=== PATIENT | male | born 2000 | race Caucasian/White ===

== ENCOUNTER 2021-05-02 18:52 | Emergency (ER) | payer OTHER ==
[~2021-05-02] VITALS: Ht 170.2 cm; Wt 117.0 kg
[2021-05-02 19:03] VITALS: BP 157/77
[2021-05-02] MEDS ORDERED: HYDROcodone/APAP 5/325 MG 1 TAB TAB PO ONE (19:35)
[2021-05-02] MEDS ORDERED: IBUP-2213 PO (19:44)
== END 2021-05-02 19:50 | disposition home or self-care (01) ==
LOC: MED 18:52
DX: S62.336A Displaced fracture of neck of fifth metacarpal bone, right hand, initial encounter for closed fracture (principal); Z79.899 Other long term (current) drug therapy; X58.XXXA Exposure to other specified factors, initial encounter; Y93.89 Activity, other specified; Y92.89 Other specified places as the place of occurrence of the external cause; Y99.8 Other external cause status
CPT/HCPCS: 73130; 99283

== ENCOUNTER 2023-11-25 04:33 | Emergency (ER) | payer OTHER ==
[~2023-11-25] VITALS: Ht 167.6 cm; Wt 104.3 kg
[~2023-11-25 04:33] MED LIST: IBUP-2213 PO
[2023-11-25 05:00] VITALS: BP 150/102; PULSE 81; RESP 18; TEMP 98; O2SAT 99
[2023-11-25 05:31] VITALS: BP 150/102; PULSE 81; RESP 18; TEMP 98; O2SAT 99
== END 2023-11-25 05:31 | disposition home or self-care (01) ==
LOC: MED 04:33
DX: S01.401A Unspecified open wound of right cheek and temporomandibular area, initial encounter (principal); R23.3 Spontaneous ecchymoses; Z79.1 Long term (current) use of non-steroidal anti-inflammatories (NSAID); X58.XXXA Exposure to other specified factors, initial encounter; Y92.89 Other specified places as the place of occurrence of the external cause; Y93.89 Activity, other specified; Y99.8 Other external cause status
CPT/HCPCS: 99282